=== PATIENT | female | born 1970 | race Caucasian/White ===

== ENCOUNTER 2017-01-25 04:20 | Emergency (ER) | payer OTHER ==
[~2017-01-25] VITALS: Ht 154.9 cm; Wt 63.5 kg
[~2017-01-25 04:20] MED LIST: FLEXERIL PO; IBUPROFEN200 M1 PO; MAALOX ADVANCE355 M1 PO; NORCO 5-325 TA1 EACH PO; PROTONIX40 MG PO
[2017-01-25 04:25] VITALS: BP 117/55
[2017-01-25] MEDS ORDERED: UNKNOWN THYROID MED (04:31)
[2017-01-25] MEDS ORDERED: NORCO 5-325 TA1 EACH PO (04:52)
== END 2017-01-25 05:15 | disposition home or self-care (01) ==
LOC: ER 04:20
DX: S83.92XA Sprain of unspecified site of left knee, initial encounter (principal); F17.210 Nicotine dependence, cigarettes, uncomplicated; W20.8XXA Other cause of strike by thrown, projected or falling object, initial encounter; Y93.89 Activity, other specified; Y92.89 Other specified places as the place of occurrence of the external cause; Y99.0 Civilian activity done for income or pay

== ENCOUNTER 2017-09-10 12:45 | Emergency (ER) | payer BC, OTHER ==
[~2017-09-10] VITALS: Ht 152.4 cm; Wt 59.0 kg
[~2017-09-10 12:45] MED LIST changes: +UNKNOWN THYROID MED
[2017-09-10] MEDS ORDERED: CLEOCIN HCL150 MG PO (13:54)
[2017-09-10 14:25] VITALS: BP 124/74
== END 2017-09-10 14:25 | disposition home or self-care (01) ==
LOC: ER 12:45
DX: L02.612 Cutaneous abscess of left foot (principal); L03.116 Cellulitis of left lower limb; F17.210 Nicotine dependence, cigarettes, uncomplicated